=== PATIENT | female | born 1955 | race Caucasian/White ===

== ENCOUNTER 2017-01-20 11:58 | Emergency (ER) | payer OTHER ==
[~2017-01-20] VITALS: Ht 152.4 cm; Wt 70.0 kg
[2017-01-20 12:07] VITALS: BP 159/80; PULSE 75; RESP 18; TEMP 98.7; O2SAT 94
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
[2017-01-20] MEDS ORDERED: TETANUS/DIPHTHERIA TOXOID ADULT 0.5 ML VIAL IM ONE (12:30)
[2017-01-20] MEDS ORDERED: ACETAMINOPHEN 325 MG TAB PO ONE (12:30)
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
[2017-01-20] MEDS ORDERED: IBUP-232 PO (13:32)
[2017-01-20] MEDS ORDERED: WALKER/ADULT/FO1 MIS (13:32)
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
== END 2017-01-20 14:38 | disposition home or self-care (01) ==
LOC: NEPK 11:58
DX: M79.601 Pain in right arm (principal); S89.91XA Unspecified injury of right lower leg, initial encounter; S50.11XA Contusion of right forearm, initial encounter; S40.011A Contusion of right shoulder, initial encounter; V49.9XXA Car occupant (driver) (passenger) injured in unspecified traffic accident, initial encounter; Z23 Encounter for immunization
CPT/HCPCS: 73130; 73590; 90471; 90714